=== PATIENT | female | born 1995 | race Caucasian/White ===

== ENCOUNTER 2017-05-14 12:39 | Emergency (ER) | payer BC, OTHER ==
[2017-05-14] MEDS ORDERED: ONDANSETRON 4 MG/2 ML VIAL ONE (13:37)
[2017-05-14] MEDS ORDERED: LORazepam 2 MG/ML INJ IVP ONE (13:39)
[2017-05-14] MEDS ORDERED: NS 1,000 ML IV ONE ×2 (13:39→14:27)
[2017-05-14] MEDS ORDERED: ONDANSETRON 4 MG/2 ML VIAL IVP ONE (13:39)
--- NOTE | 2017-05-14 13:43 | EDPHY ---
H & P Time Seen by Provider: 05/14/17 13:32 HPI/ROS: CHIEF COMPLAINT: Abdominal pain, vomiting HISTORY OF PRESENT ILLNESS: 22-year-old female presents to the emergency department by private vehicle with multiple episodes of nausea vomiting since 10 o'clock this morning. Patient thought that she woke up this morning very hung over. She tried taking some of her Zofran and then immediately began vomiting. She has vomited multiple times since this morning. No diarrhea. She describes diffuse abdominal pain especially epigastric abdominal pain. The patient has had severe stomach issues her entire life. She has had endoscopies. She states "I have seen a lot of different doctors needle was wrong with me." No fevers or chills. No diarrhea. No recent travel. No known ill contacts. No reported trauma. Last menstrual period was last week and she denies . REVIEW OF SYSTEMS: Constitutional: No fever, no chills. Eyes: No double or blurry vision. ENT: No sore throat. Respiratory: No cough, no shortness of breath. Cardiac: No chest pain. Gastrointestinal: Abdominal pain and vomiting as above. No diarrhea Genitourinary: No dysuria. Musculoskeletal: No neck or back pain. Skin: No rashes. Neurological: No headache. Past Medical/Surgical History: Anxiety, chronic stomach issues Social History: Single Smoking Status: Current every day smoker Physical Exam: General Appearance: Alert, hyperventilating, anxious Eyes: Pupils equal and round. Extraocular motions are all intact. ENT: Mouth: Mucous membranes dry. Respiratory: No wheezing, rhonchi, or rales, lungs are clear to auscultation. Cardiovascular: Regular rate and rhythm. Gastrointestinal: Abdomen is soft and nontender, no masses, no rebound or guarding, bowel sounds normal. No CVA tenderness bilaterally. Neurological: Alert and oriented x 3, cranial nerves II through XII grossly intact Skin: Warm and dry, no rashes. Musculoskeletal: Nontender to palpate along the cervical, thoracic or lumbar spine. Neck is supple. Extremities: Full range of motion and no peripheral edema. Psychiatric: Patient is oriented X 3, there is no agitation. Constitutional: Initial Vital Signs Temperature (C) 36.3 C 05/14/17 12:51 Heart Rate 71 05/14/17 12:51 Respiratory Rate 22 H 05/14/17 12:51 Blood Pressure 136/94 H 05/14/17 12:51 O2 Sat (%) 100 05/14/17 12:51 O2 Delivery Mode Room Air Allergies/Adverse Reactions: No Known Allergies Allergy (Verified 05/14/17 12:50) Home Medications: Medication Instructions Recorded Amphet Asp and D/Amphet [Adderall 10 mg PO 08/05/16 10 MG (*)] Escitalopram Oxalate [Lexapro] 10 mg PO 08/05/16 Esomeprazole Mag Trihydrate 40 mg PO BID #30 cap 08/05/16 [Nexium] Lisdexamfetamine Dimesylate 20 mg PO 08/05/16 [Vyvanse] Ondansetron Odt [Zofran Odt 4 mg 4 mg PO Q4 08/05/16 (*)] Ondansetron Odt [Zofran Odt 4 mg 8 mg PO TID PRN #20 tab 08/05/16 (*)] clonazePAM [CLONAZEPAM] 0.5 mg PO 08/05/16 LORazepam [Ativan] 1 mg PO Q6-8PRN PRN #10 tab 05/14/17 Ondansetron Odt [Zofran Odt] 4 mg PO Q4PRN #5 tab 05/14/17 Medical Decision Making ED Course/Re-evaluation: 22-year-old female presents with multiple episodes of vomiting and anxiety. She was given 1 mg of Ativan IV and 4 mg of Zofran as well as IV normal saline. She was feeling much better. She asked me to talk with her father via phone. Her father and the patient understands that she should have close follow-up with film masker on-call. It is been 2 years since her last endoscopy. We did discuss this possibly related to hyperemesis cannabinoid syndrome. I discouraged the patient from continuing to smoke marijuana. Patient will be discharged with oral Zofran and Ativan as needed for symptoms of vomiting and anxiety. Patient was tolerating p. o. fluids and is comfortable being discharged home. This patient does not have an acute abdomen. I do not think imaging studies are indicated. This was discussed with the patient who verbalized understanding and agreed. Differential Diagnosis: Including but not limited to gastroenteritis, hyperemesis cannabinoid syndrome, dehydration, urinary tract infection, pyelonephritis - Data Points Laboratory Results: Laboratory Results 05/14/17 13:40 05/14/17 13:40 05/14/17 05/14/17 05/14/17 13:40 13:40 13:40 WBC 16.64 10^3/uL H 10^3/uL (3.80-9.50) RBC 4.30 10^6/uL 10^6/uL (4.18-5.33) Hgb 13.2 g/dL g/dL (12.6-16.3) Hct 36.9 % L % (38.0-47.0) MCV 85.8 fL fL (81.5-99.8) MCH 30.7 pg pg (27.9-34.1) MCHC 35.8 g/dL g/dL (32.4-36.7) RDW 12.1 % % (11.5-15.2) Plt Count 430 10^3/uL H 10^3/uL (150-400) MPV 9.2 fL fL (8.7-11.7) Neut % (Auto) 80.1 % H % (39.3-74.2) Lymph % (Auto) 13.2 % L % (15.0-45.0) [place] % (Auto) 5.6 % % (4.5-13.0) Eos % (Auto) 0.1 % L % (0.6-7.6) Baso % (Auto) 0.5 % % (0.3-1.7) Nucleat RBC Rel Count 0.0 % % (0.0-0.2) Absolute Neuts (auto) 13.32 10^3/uL H 10^3/uL (1.70-6.50) Absolute Lymphs (auto) 2.19 10^3/uL 10^3/uL (1.00-3.00) Absolute Monos (auto) 0.94 10^3/uL H 10^3/uL (0.30-0.80) Absolute Eos (auto) 0.02 10^3/uL L 10^3/uL (0.03-0.40) Absolute Basos (auto) 0.08 10^3/uL 10^3/uL (0.02-0.10) Absolute Nucleated RBC 0.00 10^3/uL 10^3/uL (0-0.01) Immature Gran % 0.5 % % (0.0-1.1) Immature Gran # 0.09 10^3/uL 10^3/uL (0.00-0.10) Sodium 142 mEq/L mEq/L (134-144) Potassium 3.7 mEq/L mEq/L (3.5-5.2) Chloride 107 mEq/L mEq/L (97-110) Carbon Dioxide 17 mEq/l L mEq/l (22-31) Anion Gap 18 mEq/L H mEq/L (8-16) BUN 9 mg/dL mg/dL (7-23) Creatinine 0.6 mg/dL mg/dL (0.6-1.0) Estimated GFR > 60 Glucose 123 mg/dL H mg/dL (70-100) Calcium 9.9 mg/dL mg/dL (8.5-10.4) Total Bilirubin 0.5 mg/dL mg/dL (0.1-1.4) Conjugated Bilirubin 0.3 mg/dL mg/dL (0.0-0.5) Unconjugated Bilirubin 0.2 mg/dL mg/dL (0.0-1.1) AST 32 IU/L IU/L (14-46) ALT 23 IU/L IU/L (9-52) Alkaline Phosphatase 47 IU/L IU/L (38-126) Total Protein 7.7 g/dL g/dL (6.3-8.2) Albumin 4.7 g/dL g/dL (3.5-5.0) Lipase 74.0 IU/L IU/L (23-300) Beta HCG, Qual NEGATIVE Medications Given: Discontinued Medications Sodium Chloride (Ns) 1,000 mls @ 0 mls/hr IV ONCE ONE PRN Reason: Wide Open Stop: 05/14/17 13:40 Last Admin: 05/14/17 13:46 Dose: 1,000 mls Sodium Chloride (Ns) 1,000 mls @ 0 mls/hr IV ONCE ONE PRN Reason: Wide Open Stop: 05/14/17 14:28 Last Admin: 05/14/17 14:50 Dose: 1,000 mls Lorazepam (Ativan Injection) 1 mg IVP EDNOW ONE Stop: 05/14/17 13:40 Last Admin: 05/14/17 13:46 Dose: 1 mg Ondansetron HCl (Zofran) 4 mg IVP EDNOW ONE Stop: 05/14/17 13:40 Last Admin: 05/14/17 13:46 Dose: 4 mg Departure - Departure Disposition: Home, Routine, Self-Care Clinical Impression: Gastritis Qualifiers: Gastritis type: unspecified gastritis Chronicity: acute Gastritis bleeding: without bleeding Qualified Code(s): K29.00 - Acute gastritis without bleeding Abdominal pain Qualifiers: Abdominal location: generalized Qualified Code(s): R10.84 - Generalized abdominal pain Condition: Good Instructions: Gastritis (ED), Acute Nausea and Vomiting (ED) Additional Instructions: Clear liquids and slowly advance diet as tolerated. Zofran as needed for nausea. Ativan as needed for recurring bouts of nausea. Abdominal Pain: Return to the Emergency Department immediately for increasing pain, fever, vomiting, or if not completely better in 8-12 hours. Referrals: Anthony Car MD [Medical Doctor] - 2-3 days, call for appt. ( [employer] Technician on-call) Prescriptions: LORazepam [Ativan] 1 mg PO Q6-8PRN PRN #10 tab PRN Reason: Nausea/Vomiting, Use 2nd Ondansetron Odt [Zofran Odt] 4 mg PO Q4PRN #5 tab
[2017-05-14 13:54] LABS: % IMMATURE GRANULYOCYTES 0.5 % (0.0-1.1); ABSOLUTE IMMATURE GRANULOCYTES 0.09 10^3/uL (0.00-0.10); ADD DIFF? NO; ADD MORPH? NO; ADD SCAN? NO; ATYPICAL LYMPHOCYTE FLAG 20 (0-99); FRAGMENT RBC FLAG 0 (0-99); HEMATOCRIT 36.9 % (38.0-47.0); HEMOGLOBIN 13.2 g/dL (12.6-16.3); LEFT SHIFT FLG 30 (0-99); LIPEMIA HEMOLYSIS FLAG 90 (0-99); MEAN CELL HEMOGLOBIN 30.7 pg (27.9-34.1); MEAN CELL HEMOGLOBIN CONCENTR. 35.8 g/dL (32.4-36.7); MEAN CELL VOLUME 85.8 fL (81.5-99.8); MEAN PLATELET VOLUME 9.2 fL (8.7-11.7); PLATELET CLUMPS FLAG 0 (0-99); PLATELET COUNT 430 10^3/uL (150-400); RED CELL DISTRIBUTION WIDTH 12.1 % (11.5-15.2)
[2017-05-14 14:09] LABS: ALANINE AMINOTRANSFERASE 23 IU/L (9-52); ALBUMIN 4.7 g/dL (3.5-5.0); ALKALINE PHOSPHATASE 47 IU/L (38-126); ANION GAP 18 mEq/L (8-16); ASPARTATE AMINOTRANSFERASE 32 IU/L (14-46); BILIRUBIN,TOTAL 0.5 mg/dL (0.1-1.4); BILIRUBIN-CONJUGATED 0.3 mg/dL (0.0-0.5); BILIRUBIN-UNCONJUGATED 0.2 mg/dL (0.0-1.1); CALCIUM 9.9 mg/dL (8.5-10.4); CARBON DIOXIDE 17 mEq/l (22-31); CHLORIDE 107 mEq/L (97-110); CREATININE 0.6 mg/dL (0.6-1.0); GLOMERULAR FILTRATION RATE > 60; GLUCOSE 123 mg/dL (70-100); POTASSIUM 3.7 mEq/L (3.5-5.2); SODIUM 142 mEq/L (134-144); TOTAL PROTEIN 7.7 g/dL (6.3-8.2)
[2017-05-14 15:29] VITALS: BP 130/103; PULSE 64; RESP 16; TEMP 98.1; O2SAT 99
== END 2017-05-14 15:28 | disposition home or self-care (01) ==
DX: K29.00 Acute gastritis without bleeding (principal); F17.200 Nicotine dependence, unspecified, uncomplicated
CPT/HCPCS: 96374; J2060; J2405

== ENCOUNTER 2017-10-24 19:01 | Emergency (ER) | payer BC ==
[2017-10-24 19:15] VITALS: O2SAT 98
[2017-10-24] MEDS ORDERED: FAMOTIDINE 20 MG/2 ML SDV IVP ONE (19:35)
[2017-10-24] MEDS ORDERED: PROMETHAZINE HCL 25 MG/ML INJ IVP ONE (19:35)
--- NOTE | 2017-10-24 19:35 | EDPHY ---
General Time Seen by Provider: 10/24/17 19:18 Narrative: CHIEF COMPLAINT: Nausea vomiting HISTORY OF PRESENT ILLNESS: Patient complains of nausea vomiting times 2 days. This was sudden onset. She has had multiple episodes of vomiting per day. She has taken Zofran without improvement. No fever. Some epigastric discomfort. No lower abdominal pain. No trauma or injury. No diarrhea. No bloody emesis. She has a history of gastritis but she felt this was different because her roommate has a diagnosis of norovirus. She has no food outside the home on the day of onset. No recent travel. She denies daily marijuana use. No known sick contacts other than the roommate. No other associated complaints or modifying factors. She has been seen by GI physician for this with reportedly normal upper GI. REVIEW OF SYSTEMS: Ten systems reviewed and are negative unless otherwise noted in the HPI PCP: None locally. SPECIALISTS: GI physician in [facility]. PAST MEDICAL HISTORY: Gastritis, anxiety PAST SURGICAL HISTORY: None SOCIAL HISTORY: Nonsmoker. Occasional alcohol use. Occasional marijuana use. FAMILY HISTORY: Noncontributory EXAMINATION General Appearance: Alert, no distress Head: normocephalic, atraumatic Eyes: Pupils equal and round, no conjunctival pallor or injection ENT, Mouth: Mucous membranes slightly dry. Airway is widely patent. The uvula is midline. No erythema. Neck: Normal inspection, supple, non-tender Respiratory: Lungs are clear to auscultation. No wheezing rhonchi or crackles Cardiovascular: Regular rate and rhythm. No murmur. Gastrointestinal: Abdomen is soft and nontender. No guarding. No tympany. No rigidity. No CVA tenderness. Benign abdominal examination Back: non-tender, no bony abnormalities Neurological: A&O, nonfocal, normal gait Skin: Warm and dry, no rash. No petechiae or purpura Extremities: Nontender, no pedal edema Psychiatric: Mood and affect normal DIFFERENTIAL DIAGNOSES: Including but not limited to gastritis, peptic ulcer disease, esophagitis, enteritis, colitis, pancreatitis, cholecystitis MDM: 7:40 p.m. Two days of nausea vomiting without any diarrhea. Abdominal exam is benign. No fever. Vital signs are within normal limits. Patient does have a history of gastritis. All treated with antiemetic, Pepcid and IV fluid. Laboratory studies been ordered. She is in no acute distress. I do not feel she warrants any imaging at this time. 8:30 p.m. Laboratory studies are all within normal limits, including a negative HCG test. She has received IV fluid, IV Pepcid, IV promethazine. I have re-evaluated the patient. At this time she is starting to feel better. I will attempt a GI cocktail and p.o. trial. 9:20 p.m. Patient re-evaluated. The GI cocktail was very successful. She is feeling almost completely resolved at this time. We discussed going home with prepack of promethazine tonight and a prescription of Carafate tomorrow. She will contact her GI physician in [facility] as she is flying back home tomorrow for the holiday. We discussed ED precautions. We discussed clear liquid diet was slowly advancing as tolerated. She is comfortable with this plan and discharged home stable condition. SUPERVISION: This patient was independently evaluated without direct involvement of or examination by the attending physician. - History Smoking Status: Former smoker - Objective Vital Signs: Initial Vital Signs Temperature (C) 98.8 F 10/24/17 19:11 Heart Rate 90 10/24/17 19:11 Respiratory Rate 18 10/24/17 19:11 Blood Pressure 122/90 H 10/24/17 19:11 O2 Sat (%) 98 10/24/17 19:11 O2 Delivery Mode Room Air Allergies/Adverse Reactions: No Known Allergies Allergy (Verified 10/24/17 19:15) Home Medications: Medication Instructions Recorded Amphet Asp and D/Amphet [Adderall 10 mg PO 08/05/16 10 MG (*)] Esomeprazole Mag Trihydrate 40 mg PO BID #30 08/05/16 [Nexium] Lisdexamfetamine Dimesylate 20 mg PO 08/05/16 [Vyvanse] Ondansetron Odt [Zofran Odt 4 mg 4 mg PO Q4 08/05/16 (*)] clonazePAM [CLONAZEPAM] 0.5 mg PO 08/05/16 LORazepam [Ativan] 1 mg PO Q6-8PRN PRN #10 tab 05/14/17 Promethazine HCl [Phenergan 25mg 25 mg PO Q8 PRN #12 tab 10/24/17 (*)] Sucralfate [Carafate Oral Liquid 10 ml PO TID #240 ml 10/24/17 100 mg/ml] Laboratory Results: Laboratory Results 10/24/17 19:40 10/24/17 19:40 10/24/17 10/24/17 10/24/17 19:40 19:40 19:40 WBC 4.99 10^3/uL 10^3/uL (3.80-9.50) RBC 4.33 10^6/uL 10^6/uL (4.18-5.33) Hgb 13.3 g/dL g/dL (12.6-16.3) Hct 37.5 % L % (38.0-47.0) MCV 86.6 fL fL (81.5-99.8) MCH 30.7 pg pg (27.9-34.1) MCHC 35.5 g/dL g/dL (32.4-36.7) RDW 12.2 % % (11.5-15.2) Plt Count 259 10^3/uL 10^3/uL (150-400) MPV 8.9 fL fL (8.7-11.7) Neut % (Auto) 65.4 % % (39.3-74.2) Lymph % (Auto) 20.0 % % (15.0-45.0) [place] % (Auto) 12.4 % % (4.5-13.0) Eos % (Auto) 1.4 % % (0.6-7.6) Baso % (Auto) 0.4 % % (0.3-1.7) Nucleat RBC Rel Count 0.0 % % (0.0-0.2) Absolute Neuts (auto) 3.26 10^3/uL 10^3/uL (1.70-6.50) Absolute Lymphs (auto) 1.00 10^3/uL 10^3/uL (1.00-3.00) Absolute Monos (auto) 0.62 10^3/uL 10^3/uL (0.30-0.80) Absolute Eos (auto) 0.07 10^3/uL 10^3/uL (0.03-0.40) Absolute Basos (auto) 0.02 10^3/uL 10^3/uL (0.02-0.10) Absolute Nucleated RBC 0.00 10^3/uL 10^3/uL (0-0.01) Immature Gran % 0.4 % % (0.0-1.1) Immature Gran # 0.02 10^3/uL 10^3/uL (0.00-0.10) Sodium 138 mEq/L mEq/L (134-144) Potassium 3.9 mEq/L mEq/L (3.5-5.2) Chloride 101 mEq/L mEq/L (97-110) Carbon Dioxide 22 mEq/l mEq/l (22-31) Anion Gap 15 mEq/L mEq/L (8-16) BUN 11 mg/dL mg/dL (7-23) Creatinine 0.7 mg/dL mg/dL (0.6-1.0) Estimated GFR > 60 Glucose 91 mg/dL mg/dL (70-100) Calcium 8.9 mg/dL mg/dL (8.5-10.4) Lipase 45 IU/L IU/L (23-300) Beta HCG, Qual NEGATIVE Medications Given: Discontinued Medications Al Hydroxide/Mg Hydroxide (Maalox Susp) 30 ml PO ONCE ONE Stop: 10/24/17 20:35 Last Admin: 10/24/17 20:45 Dose: 30 ml Famotidine (Pepcid) 20 mg IVP EDNOW ONE Stop: 10/24/17 19:36 Last Admin: 10/24/17 19:52 Dose: 20 mg Hyoscyamine Sulfate (Levsin, Hyomax-Sl) 0.25 mg PO ONCE ONE Stop: 10/24/17 20:35 Last Admin: 10/24/17 20:45 Dose: 0.25 mg Sodium Chloride (Ns) 1,000 mls @ 0 mls/hr IV EDNOW ONE; Wide Open PRN Reason: Protocol Stop: 10/24/17 19:40 Last Admin: 10/24/17 19:46 Dose: 1,000 mls Lidocaine (Lidocaine 2% Viscous) 15 ml PO ONCE ONE Stop: 10/24/17 20:35 Last Admin: 10/24/17 20:45 Dose: 15 ml Promethazine HCl (Phenergan) 12.5 mg IVP ONCE ONE Stop: 10/24/17 19:36 Last Admin: 10/24/17 19:52 Dose: 12.5 mg Promethazine HCl (Phenergan 25 Mg Prepack #4) 1 btl YANET CRUMP ONE Stop: 10/24/17 21:20 Last Admin: 10/24/17 21:38 Dose: 1 btl Departure - Departure Disposition: Home, Routine, Self-Care Clinical Impression: Nausea & vomiting Qualifiers: Vomiting type: unspecified Vomiting Intractability: non-intractable Qualified Code(s): R11.2 - Nausea with vomiting, unspecified Gastritis Qualifiers: Gastritis type: unspecified gastritis Chronicity: acute Gastritis bleeding: without bleeding Qualified Code(s): K29.00 - Acute gastritis without bleeding Condition: Good Instructions: Promethazine (By mouth), Gastritis (ED) Additional Instructions: 1. Medications as prescribed as needed 2. Contact GI physician upon return home to [facility] tomorrow 3. ED precautions as discussed 4. Clear liquid diet. Advance slowly as tolerated Referrals: Dickson Anaya MD [Medical Doctor] - As per Instructions Prescriptions: Promethazine HCl [Phenergan 25mg (*)] 25 mg PO Q8 PRN #12 tab PRN Reason: Nausea/Vomiting, Use 1st Sucralfate [Carafate Oral Liquid 100 mg/ml] 10 ml PO TID #240 ml
[2017-10-24] MEDS ORDERED: NS 1,000 ML IV ONE (19:39)
[2017-10-24 19:47] LABS: PLATELET COUNT 259 10^3/uL (150-400)
[2017-10-24] MEDS ORDERED: chlordiazePOXIDE 25 MG CAP ONE (20:10)
[2017-10-24] MEDS ORDERED: MAG HYDROX/AL HYDROX/SIMETH 30 ML UDCUP PO ONE (20:34)
[2017-10-24] MEDS ORDERED: HYOSCYAMINE SULFATE 0.125 MG TAB PO ONE (20:34)
[2017-10-24] MEDS ORDERED: LIDOCAINE 2% VISCOUS 15 ML UDCUP PO ONE (20:34)
[2017-10-24] MEDS ORDERED: PROMETHAZINE 25 MG PREPACK #4 BTL TAKEHOME ONE ×2 (21:18→21:19)
[2017-10-24 21:45] VITALS: BP 130/85; PULSE 70; RESP 16; TEMP 98.6
== END 2017-10-24 21:44 | disposition home or self-care (01) ==
DX: K29.00 Acute gastritis without bleeding (principal); E86.9 Volume depletion, unspecified; Z87.891 Personal history of nicotine dependence
CPT/HCPCS: 96374; J2550